=== PATIENT | male | born 1935 | race Caucasian/White ===

== ENCOUNTER → 2019-05-26 | Day surgery (SDC) | payer MEDICARE ==
[2019-05-23 11:37] LABS: BASOPHILS # (AUTO) 0.1 (0.0-0.1); BASOPHILS % 2.1 % (0.0-1.0); EOSINOPHILS # (AUTO) 0.3 (0.0-0.4); EOSINOPHILS % 9.9 % (0.0-6.0); HEMATOCRIT 34.4 % (38.2-49.6); HEMOGLOBIN 11.1 g/dL (14.0-18.0); LYMPHOCYTES # (AUTO) 1.2 (1.0-3.2); LYMPHOCYTES % 34.6 % (18.0-39.1); MEAN CORPUSCULAR HEMOGLOBIN 31.1 pg (28-32); MEAN CORPUSCULAR HGB CONC 32.3 g/dL (31-35); MEAN CORPUSCULAR VOLUME 96.4 fL (81-99); MONOCYTES # (AUTO) 0.3 (0.2-0.8); MONOCYTES % 10.2 % (4.4-11.3); NEUTROPHILS # (AUTO) 1.4 (2.1-6.9); NEUTROPHILS % 42.3 % (38.7-80.0); PLATELET COUNT 205 x10e3/uL (140-360); RED BLOOD COUNT 3.57 x10e6/uL (4.3-5.7); RED CELL DISTRIBUTION WIDTH 15.6 % (11.7-14.4)
[2019-05-23 11:49] LABS: BLOOD UREA NITROGEN 19 mg/dL (7-26); BUN/CREATININE RATIO 21 (6-25); CALCIUM 8.8 mg/dL (8.4-10.2); CARBON DIOXIDE 26 mmol/L (22-29); CHLORIDE 107 mmol/L (98-107); CREATININE, SERUM 0.91 mg/dL (0.72-1.25); EST GLOMERULAR FILTRATION RATE > 60 ML/MIN (60-); GLUCOSE 112 mg/dL (74-118); SODIUM 139 mmol/L (136-145)
[2019-05-23 12:44] LABS: EOSINOPHILS % (MANUAL) 5 % (0-7); LYMPHOCYTES % (MANUAL) 32 % (19-48); MONOCYTES % (MANUAL) 5 % (3.4-9.0); NEUTROPHILS % (MANUAL) 58 % (40-74); PLATELET MORPHOLOGY COMMENT NORMAL; RBC MORPHOLOGY COMMENT NORMAL
[2019-05-23 12:45] LABS: PLATELET ESTIMATE ADEQUATE
--- NOTE | 2019-05-23 13:13 | Diagnostic Imaging Report ---
EXAMINATION: CHEST 2 VIEWS INDICATION: Pre-operative COMPARISON: None FINDINGS: LINES/TUBES:None LUNGS/PLEURA:The lungs are well-inflated. There is a 1.8 cm nodular opacity at the lateral right mid lung zone. Crescentic opacity along the lateral pleura, possibly represents fluid versus pleural thickening. No pneumothorax. MEDIASTINUM:The cardiomediastinal silhouette appears normal in size and shape. Atherosclerotic calcifications of the thoracic aorta. BONES/SOFT TISSUES:No acute osseous injury. ABDOMEN:No free air under the diaphragm. IMPRESSION: 1.8 cm nodular opacity at the lateral right midlung zone may represent a pulmonary nodule. Right lateral pleural fluid versus pleural thickening. RECOMMENDATIONS: Chest CT. Signed by: Laly Ceja MD on 05/23/2019 1:10 PM
[~2019-05-26] MED LIST: CEFTRIAXONE SOD 1 GM/NS 50 ML 50 ML IV ONE; EPHEDRINE SULFATE INJ 50 MG/10 ML SYR ONE; FENTANYL CITRATE/PF 100MCG/2 ML INJ ONE; HYDRALAZINE HCL 20 MG/ML VIAL ONE; IOPAMIDOL 610MG/1ML 300 MG/ML VIAL IV ONE; LIDOCAINE HCL 2% LOCAL INJ 5 ML SDV VIAL INJ ONE; ONDANSETRON HCL INJ 2MG/ML 2ML 2 MG/ML VIAL ONE; PROPOFOL IV EMULSION 10 MG/ML 20 ML VIAL ONE; SEVOFLURANE INHAL SOLN 250 ML PEN BTL ONE
--- OUTSIDE RECORDS SUMMARY | 2019-05-26 08:22 | XMS REPORT ---
Author Author [facility] Address Unknown Phone Unavailable Care Team Providers Care Heavy Equipment Service Technician Name Role Phone Alden SYED Unavailable Unavailable Problems This patient has no known problems. Allergies, Adverse Reactions, Alerts This patient has no known allergies or adverse reactions. Medications This patient has no known medications. Results Test Description Test Time Test Comments Text Results Atomic Results Result Comments CHEST 2 VIEWS 2019-05-23 13:05:00 [place] [id number] Patient Name: EDDA STACY MR #: [id number] : 1935 Age/Sex: 84/M Req #: [id number] [facility] Physician: Ordered by: NAKUL SYED MD Report #: [id number] Location: OR Room/Bed: Procedure: [id number] DX/CHEST 2 VIEWS Exam Date: 05/23/19 Exam Time: 1130 REPORT STATUS: Signed EXAMINATION: CHEST 2 VIEWS INDICATION: Pre-operative COMPARISON: None FINDINGS: LINES/TUBES:None LUNGS/PLEURA:The lungs are well-inflated. There is a 1.8 cm nodular opacity at the lateral right mid lung zone. Crescentic opacity along the lateral pleura, possibly represents fluid versus pleural thickening. No pneumothorax. MEDIASTINUM:The cardiomediastinal silhouette appears normal in size and shape. Atherosclerotic calcifications of the thoracic aorta. BONES/SOFT TISSUES:No acute osseous injury. ABDOMEN:No free air under the diaphragm. IMPRESSION: 1.8 cm nodular opacity at the lateral right midlung zone may represent a pulmonary nodule. Right lateral pleural fluid versus pleural thickening. RECOMMENDATIONS: Chest CT. Signed by: Kristin Ceja MD on 05/23/2019 1:10 PM Dictated By: KRISTIN CEJA MD 1310 Transcribed By: JESÚS on 05/23/19 1310 COPY TO: NAKUL SYED MD
[2019-05-26 12:30] VITALS: BP 121/57
--- NOTE | 2019-06-23 16:57 | Operative Report ---
DATE OF PROCEDURE: 05/26/2019 SURGEON: Scotty Beck MD PREOPERATIVE DIAGNOSES: Hematuria and bladder mass by CT scan. POSTOPERATIVE DIAGNOSES: 1. Hematuria. 2. 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 OPERATIVE PROCEDURE: 1. Cystoscopy. 2. Transurethral resection of large bladder tumor. ANESTHESIA: General anesthesia. ESTIMATED BLOOD LOSS: Minimal. INDICATIONS: Mr. Dejesus is an 84-year-old man, who recently noted gross painless hematuria. He had a CT scan, which revealed normal upper tracts with 4 cm filling defect in his bladder. He now presents for definitive surgical management of this problem. PROCEDURE IN DETAIL: The patient was brought into the operative room, placed in supine position. After administration of general anesthesia, was placed in dorsal lithotomy position, and prepped and draped in the usual sterile fashion. Cystourethroscopy was performed using a 22-Hong Konger cystoscope. The anterior and posterior urethra were noted to be normal. The prostate revealed a lateral lobar hyperplasia and mild elevation of the median bar. The bladder was entered without difficulty. Upon entrance into the bladder, the ureteral orifices were in normal anatomic position and produced clear efflux. There was a sessile tumor with a broad-based papillary fronds seen on the left lateral wall just superior and lateral to the ureteral orifice on that side. There were no other real papular lesions noted. The bladder was left full, and the cystoscope and sheath were removed. A 26-Hong Konger resectoscope sheath was then placed in a retrograde fashion and the Newsw[place] resectoscope was used to perform the procedure. The tumor was resected in its entirety down to the level of muscle. There was an obturator reflex noted during the procedure right on that, it was somewhat deep. Hemostasis was obtained using electrocautery device. Once adequate hemostasis was secured, the resectoscope and sheath were removed. A 20-Hong Konger coude catheter was then placed in a retrograde fashion and the balloon inflated with 10 mL of sterile water. The urinary efflux was noted to be blood tinged. The patient was returned to supine position and anesthesia was reversed. He was transferred to a bed and taken to the Postanesthesia Care Unit in good condition. Of note, the needle and instrument count were correct at the conclusion of the case. MD MATTHEW Spicer/RIVER /[id number]
== END | disposition home or self-care (01) ==
LOC: OR 08:20
PROVIDERS: ATTEND Urology
DX: C67.2 Malignant neoplasm of lateral wall of bladder (principal); N30.80 Other cystitis without hematuria; N40.0 Benign prostatic hyperplasia without lower urinary tract symptoms; Z01.810 Encounter for preprocedural cardiovascular examination; Z01.812 Encounter for preprocedural laboratory examination; Z01.818 Encounter for other preprocedural examination; Z87.891 Personal history of nicotine dependence
CPT/HCPCS: 36415; 52240; 71046; 80048; 85025; 88305; 93005; J0360; J0696; J2001; J2405; J2704; J3010

== ENCOUNTER → 2020-01-12 | Day surgery (SDC) | payer MEDICARE ==
[2020-01-09 12:43] LABS: BASOPHILS % 0.6 % (0.0-1.0); EOSINOPHILS # (AUTO) 0.2 (0.0-0.4); EOSINOPHILS % 2.5 % (0.0-6.0); HEMATOCRIT 36.2 % (38.2-49.6); LYMPHOCYTES # (AUTO) 1.4 (1.0-3.2); LYMPHOCYTES % 21.5 % (18.0-39.1); MEAN CORPUSCULAR HEMOGLOBIN 31.9 pg (28-32); MEAN CORPUSCULAR HGB CONC 33.1 g/dL (31-35); MEAN CORPUSCULAR VOLUME 96.3 fL (81-99); MONOCYTES # (AUTO) 0.8 (0.2-0.8); MONOCYTES % 12.4 % (4.4-11.3); NEUTROPHILS # (AUTO) 4.2 (2.1-6.9); NEUTROPHILS % 62.7 % (38.7-80.0); PLATELET COUNT 205 x10e3/uL (140-360); RED BLOOD COUNT 3.76 x10e6/uL (4.3-5.7); RED CELL DISTRIBUTION WIDTH 14.6 % (11.7-14.4)
[2020-01-09 13:00] LABS: ANION GAP 11.8 mmol/L (8-16); BLOOD UREA NITROGEN 20 mg/dL (7-26); BUN/CREATININE RATIO 18 (6-25); CALCIUM 9.1 mg/dL (8.4-10.2); CARBON DIOXIDE 29 mmol/L (22-29); CHLORIDE 105 mmol/L (98-107); CREATININE, SERUM 1.12 mg/dL (0.72-1.25); EST GLOMERULAR FILTRATION RATE > 60 ML/MIN (60-); GLUCOSE 102 mg/dL (74-118); POTASSIUM 4.8 mmol/L (3.5-5.1); SODIUM 141 mmol/L (136-145)
--- NOTE | 2020-01-09 13:24 | Diagnostic Imaging Report ---
EXAMINATION: CHEST 2 VIEWS INDICATION: ^PRE-OP COMPARISON: None FINDINGS: PA and lateral views TUBES and LINES: None. LUNGS: Lungs are well inflated. Mild left lower lobe scarring. The lungs are otherwise clear. There is no evidence of pneumonia or pulmonary edema. PLEURA: No pleural effusion or pneumothorax. HEART AND MEDIASTINUM: The cardiomediastinal silhouette is unremarkable. BONES AND SOFT TISSUES: No acute osseous lesion. Soft tissues are unremarkable. UPPER ABDOMEN: No free air under the diaphragm. An IVC filter is noted. IMPRESSION: No acute thoracic radiographic abnormality. Signed by: Antony Day MD on 01/09/2020 1:21 PM
[~2020-01-12] MED LIST changes: +ASPIR 8181 MG PO; +CENTRUM PO; +DEXAMETHASONE SOD PHOS INJ 4 MG/ML VIAL ONE; -EPHEDRINE SULFATE INJ 50 MG/10 ML SYR ONE; -FENTANYL CITRATE/PF 100MCG/2 ML INJ ONE; +GABAPENTIN100 MG PO; -HYDRALAZINE HCL 20 MG/ML VIAL ONE; +IOPAMIDOL 300MG/ML 50ML INFUS..BTL IV ONE; -IOPAMIDOL 610MG/1ML 300 MG/ML VIAL IV ONE; +LABETALOL HCL 20 ML ONE; +VIT B12 PO; +VIT E PO
--- NOTE | 2020-01-12 07:10 | NUR ---
SPIRITUAL CARE - Pre-Surgery Assessment: Pt in bed. Pt's at bedside. Pt reported supportive attention from family and friends. Intervention: I provided pastoral presence, hospitality, and sympathetic listening. I acquainted pt with availability of french cord binder while hospitalized. Outcome: Pt expressed appreciation for visit. No need for follow up indicated at this time. JESS Berrylain Spiritual Care Department O: [phone]
[2020-01-12 10:40] VITALS: BP 162/88
--- NOTE | 2020-02-13 09:44 | Operative Report ---
DATE OF PROCEDURE: 01/12/2020 SURGEON: Scotty Beck MD PREOPERATIVE DIAGNOSIS: History of transitional cell carcinoma of the bladder. POSTOPERATIVE DIAGNOSIS: History of transitional cell carcinoma of the bladder. PROCEDURE PERFORMED: Cystoscopy with bladder biopsy. ANESTHESIA: General anesthesia. ESTIMATED BLOOD LOSS: Minimal. INDICATIONS: Mr. Narinder Dejesus is an 84-year-old gentleman, with a prior history of TCC of the bladder, who recently re-presented with continued hematuria. His FISH study was positive. He now presents for bladder biopsy. PROCEDURE IN DETAIL: The patient was brought into the operating room, placed in supine position. After administration of general anesthesia, he was placed in dorsal lithotomy position and prepped and draped in the usual sterile fashion. Cystourethroscopy was performed using a 21-Australian cystoscope. The anterior and posterior urethra were noted to be normal. The prostate was revealed a short fossa with moderate lateral lobar hyperplasia and mild elevation of the median bar. The bladder was entered without difficulty. Upon entrance into the bladder, the ureteral orifices were in a normal anatomical position and produced clear efflux. There were grade 2 trabeculations noted throughout. There was some scarring seen from the prior TURBT. There was mild erythema noted on the posterior wall, but no potentially suspicious erythematous plaques and no papillary lesions were noted. The bladder filled and emptied without difficulty. Using the cold cup bladder biopsy forceps, biopsies were obtained from the mild erythema on the posterior wall as well as the lateral vazquez, dome, and trigone. These sites were fulgurated using the Bugbee electrode. The samples were sent to Pathology for microscopic analysis. Once adequate hemostasis was secured, the bladder was left mildly full and the cystoscope and sheath were removed. The patient was returned to supine position and anesthesia was reversed. He was transferred to a bed and taken to the postanesthesia care unit in good condition. Of note, the needle and instrument count were correct at the conclusion of the case. Scotty Beck MD HLW/MODL /[id number]
== END | disposition home or self-care (01) ==
LOC: OR 06:45
PROVIDERS: ATTEND Urology
DX: C67.4 Malignant neoplasm of posterior wall of bladder (principal); N32.89 Other specified disorders of bladder; Z98.890 Other specified postprocedural states; Z01.810 Encounter for preprocedural cardiovascular examination; Z01.818 Encounter for other preprocedural examination; Z01.812 Encounter for preprocedural laboratory examination; Z79.82 Long term (current) use of aspirin; Z87.891 Personal history of nicotine dependence
CPT/HCPCS: 36415; 52214; 71046; 80048; 85025; 88305; 93005; J0696; J1100; J2001; J2405; J2704; J3490

== ENCOUNTER → 2020-07-12 | Day surgery (SDC) | payer MEDICARE, OTHER ==
[2020-07-09 10:37] LABS: BASOPHILS % 0.9 % (0.0-1.0); EOSINOPHILS # (AUTO) 0.1 (0.0-0.4); HEMATOCRIT 33.9 % (38.2-49.6); HEMOGLOBIN 10.9 g/dL (14.0-18.0); LYMPHOCYTES # (AUTO) 1.3 (1.0-3.2); LYMPHOCYTES % 38.4 % (18.0-39.1); MEAN CORPUSCULAR HEMOGLOBIN 30.6 pg (28-32); MEAN CORPUSCULAR HGB CONC 32.2 g/dL (31-35); MEAN CORPUSCULAR VOLUME 95.2 fL (81-99); MONOCYTES # (AUTO) 0.3 (0.2-0.8); MONOCYTES % 10.3 % (4.4-11.3); NEUTROPHILS # (AUTO) 1.6 (2.1-6.9); NEUTROPHILS % 47.1 % (38.7-80.0); PLATELET COUNT 228 x10e3/uL (140-360); RED BLOOD COUNT 3.56 x10e6/uL (4.3-5.7); RED CELL DISTRIBUTION WIDTH 15.4 % (11.7-14.4)
--- NOTE | 2020-07-09 11:32 | Diagnostic Imaging Report ---
EXAMINATION: CHEST 2 VIEWS INDICATION: Pre-operative COMPARISON: Chest radiograph 01/09/2020 FINDINGS: LINES/TUBES:Dual lead left chest pacer. LUNGS:The lungs are well-inflated. No focal consolidation or pulmonary edema. PLEURA:No pleural effusion or pneumothorax. MEDIASTINUM:The cardiomediastinal silhouette appears normal in size and shape. BONES/SOFT TISSUES:No acute osseous injury. ABDOMEN:No free air under the diaphragm. IMPRESSION: No focal pneumonia or pulmonary edema. Signed by: Laly Ceja MD on 07/09/2020 11:28 AM
[~2020-07-12] MED LIST changes: +ATORVASTATIN CA10 MG PO; +CLOPIDOGREL75 MG PO; +DOXYCYCLINE HY100 MG PO; +FENTANYL CITRATE/PF 100MCG/2 ML INJ ONE; -IOPAMIDOL 300MG/ML 50ML INFUS..BTL IV ONE; -LABETALOL HCL 20 ML ONE; +METOPROLOL TART25 MG PO; -ONDANSETRON HCL INJ 2MG/ML 2ML 2 MG/ML VIAL ONE
[2020-07-12 10:45] VITALS: BP 155/85
--- NOTE | 2020-07-19 18:12 | Operative Report ---
DATE OF PROCEDURE: 07/12/2020 SURGEON: Scotty Beck MD PREOPERATIVE DIAGNOSIS: History of transitional cell carcinoma of the bladder. POSTOPERATIVE DIAGNOSIS: History of transitional cell carcinoma of the bladder. OPERATIVE PROCEDURE PERFORMED: Cystoscopy with bladder biopsy. ANESTHESIA: General anesthesia. ESTIMATED BLOOD LOSS: Minimal. INDICATIONS: Mr. Dejesus is an 85-year-old gentleman with a history of TCC of the bladder who recently finished a six week course of BCG therapy. He now presents for a post BCG therapy, biopsies of his bladder. PROCEDURE IN DETAIL: The patient was brought into the operating room, placed in supine position. After administration of general anesthesia, he was prepped and draped in usual sterile fashion. Cystourethroscopy was performed using a 21-Kazakh cystoscope. Anterior and posterior urethra were noted to be normal. The prostate revealed mild lateral lobar hyperplasia and mild elevation of the median bar. The bladder was entered without difficulty. Upon entrance into the bladder, the ureteral orifices were in normal anatomical position and produced largely clear efflux. There are some scars seen from other transurethral resections of bladder tumors and biopsies, but no papillary lesions were noted. There was one area of bilateral wall that appeared to be a little bit erythematous and biopsies were taken of this location and sent as well. Biopsies were then taken from the remaining bleeding mucosa and these were sent to pathology as bladder biopsies. All the sites were fulgurated with the Bugbee electrode. There was no bleeding noted at the conclusion of the procedure. The bladder was then emptied and the cystoscope and the sheath were removed. The patient was returned to supine position and anesthesia was reversed. He was transferred to a bed and taken to the postanesthesia care unit in good condition. Of note, the needle and instrument count were correct at the conclusion of the case. Scotty Beck MD HLW/MODL /[id number]
== END | disposition home or self-care (01) ==
LOC: OR 07:24
PROVIDERS: ATTEND Urology
DX: N30.80 Other cystitis without hematuria (principal); Z85.51 Personal history of malignant neoplasm of bladder; I10 Essential (primary) hypertension; I25.10 Atherosclerotic heart disease of native coronary artery without angina pectoris; Z01.810 Encounter for preprocedural cardiovascular examination; Z01.812 Encounter for preprocedural laboratory examination; Z01.818 Encounter for other preprocedural examination; Z11.59 Encounter for screening for other viral diseases; Z79.02 Long term (current) use of antithrombotics/antiplatelets; Z79.82 Long term (current) use of aspirin; Z95.5 Presence of coronary angioplasty implant and graft; Z95.0 Presence of cardiac pacemaker
CPT/HCPCS: 36415; 52214; 71046; 85025; 88305; 93005; J0696; J1100; J2001; J2704; J3010; U0002